=== PATIENT | female | born 1960 | race African-American/Black ===

== ENCOUNTER 2018-04-09 14:52 | Observation (INO) | payer OTHER ==
[~2018-04-09] VITALS: Ht 165.1 cm; Wt 85.8 kg
[~2018-04-09 14:52] MED LIST: ACET-1757 PO; ASPI-496 PO; ASPI81TA45 PO; ATOR40TA PO; FAMO20TA7 PO; LISI-167 PO; LOSA25TA6 PO; METF500T17 PO; [UNRECOGNIZED DRUG - REMARK] PO; albuterol INH; victoza SQ
[2018-04-09] MEDS ORDERED: ASPIRIN 81 MG TABLET CHEW PO ONE (15:00)
[2018-04-09] MEDS ORDERED: ASPIRIN 81 MG TABLET CHEW ONE (15:07)
[2018-04-09] MEDS ORDERED: NITROGLYCERIN SINGLE TAB 0.4 MG SL PRN (15:30)
[2018-04-09] MEDS ORDERED: ONDANSETRON 2MG/ML, 2ML IVPush ONE (15:30)
[2018-04-09] MEDS ORDERED: NITROGLYCERIN SINGLE TAB 0.4 MG SL ONE (15:36)
[2018-04-09 15:54] LABS: BASOPHILS # (AUTO) 0.05 x10^3/uL (0-0.1); BASOPHILS % (AUTO) 0 % (0-1); EOSINOPHILS # (AUTO) 0.37 x10^3/uL (0-0.4); EOSINOPHILS % (AUTO) 3 % (1-7); LYMPHOCYTES # (AUTO) 4.34 x10^3/uL (1-3.4); LYMPHOCYTES % (AUTO) 40 % (22-44); MD NO; MEAN CORPUSCULAR HEMOGLOBIN 27.1 pg (27.0-34.8); MEAN CORPUSCULAR VOLUME 81.9 fL (80-100); MEAN PLATELET VOLUME 7.5 fL (7.4-10.4); MONOCYTES # (AUTO) 0.77 x10^3/uL (0.2-0.8); MONOCYTES % (AUTO) 7 % (2-9); NEUTROPHILS # (AUTO) 5.44 x10^3/uL (1.8-6.8); NEUTROPHILS % (AUTO) 50 % (42-75); PLATELET COUNT 435 x10^3/uL (130-400); RED BLOOD COUNT 5.22 x10^6/uL (3.82-5.3); RED CELL DISTRIBUTION WIDTH 15.8 % (9.6-15.2)
[2018-04-09 16:09] LABS: ANION GAP 6 mmol/L (5-15); CHLORIDE 105 mmol/L (98-107); CREATININE 0.99 mg/dL (0.55-1.02)
[2018-04-09 16:12] LABS: TROPONIN I < 0.015 ng/mL (0.000-0.045)
[2018-04-09] MEDS ORDERED: NITROGLYCERIN 0.4 MG/SPRAY SL PRN (17:30)
[2018-04-09] MEDS: INSULIN LISPRO 100 UNITS/ML, PEN SQ-INSULIN SCH ×2 (17:30→21:35)
[2018-04-09] MEDS ORDERED: MORPHINE SULFATE 4 MG/ML, 1ML IVPush PRN (17:30)
[2018-04-09] MEDS ORDERED: NITROGLYCERIN 0.4 MG BOTTLE (25 TABS) SL PRN (17:30)
[2018-04-09] MEDS ORDERED: ACETAMINOPHEN 325 MG TABLET PO PRN (17:30)
[2018-04-09] MEDS ORDERED: ONDANSETRON ODT 4 MG PO PRN (17:30)
[2018-04-09 17:46] LABS: HEMOGLOBIN A1C 8.3 % (4.2-6.3)
[2018-04-09 18:38] VITALS: BP 137/82
[2018-04-09 19:41] VITALS: BP 119/78
[2018-04-09 19:42] VITALS: BP 142/84
[2018-04-09 19:43] VITALS: BP 142/86
[2018-04-09 21:36] LABS: TROPONIN I < 0.015 ng/mL (0.000-0.045)
[2018-04-09] MEDS: IBUPROFEN 200 MG TABLET PO PRN (22:14)
[2018-04-10 00:22] VITALS: BP 111/68
[2018-04-10 00:24] VITALS: BP 125/79
[2018-04-10 00:26] VITALS: BP 137/83
[2018-04-10 03:31] LABS: BASOPHILS # (AUTO) 0.05 x10^3/uL (0-0.1); BASOPHILS % (AUTO) 1 % (0-1); EOSINOPHILS # (AUTO) 0.36 x10^3/uL (0-0.4); EOSINOPHILS % (AUTO) 4 % (1-7); LYMPHOCYTES # (AUTO) 3.88 x10^3/uL (1-3.4); LYMPHOCYTES % (AUTO) 42 % (22-44); MD NO; MEAN CORPUSCULAR HEMOGLOBIN 27.1 pg (27.0-34.8); MEAN CORPUSCULAR HGB CONC 33.5 g/dL (32.4-35.8); MEAN PLATELET VOLUME 7.7 fL (7.4-10.4); MONOCYTES # (AUTO) 0.78 x10^3/uL (0.2-0.8); MONOCYTES % (AUTO) 8 % (2-9); NEUTROPHILS # (AUTO) 4.16 x10^3/uL (1.8-6.8); NEUTROPHILS % (AUTO) 45 % (42-75); PLATELET COUNT 383 x10^3/uL (130-400); RED BLOOD COUNT 4.69 x10^6/uL (3.82-5.3); RED CELL DISTRIBUTION WIDTH 15.2 % (9.6-15.2)
[2018-04-10 03:43] LABS: ALBUMIN 3.3 g/dL (3.4-5.0); ANION GAP 8 mmol/L (5-15); CALCIUM 8.3 mg/dL (8.5-10.1); CHLORIDE 109 mmol/L (98-107)
[2018-04-10 03:49] LABS: ALANINE AMINOTRANSFERASE 66 U/L (12-78); ALKALINE PHOSPHATASE 90 U/L (45-117); BILIRUBIN,TOTAL 0.3 mg/dL (0.2-1.0); CHOL/HDL RATIO 4.6; CHOLESTEROL, TOTAL 148 mg/dL (140-239); HDL CHOL % 22 % (28-40); HDL CHOLESTEROL (DIRECT) 32 mg/dL (40-60); LDL CHOLESTEROL,CALCULATED 78 mg/dL (54-169); LDL/HDL RATIO 2.4 (0.5-3.0); TOTAL PROTEIN 6.7 g/dL (6.4-8.2); TRIGLYCERIDES 190 mg/dL (50-200); TROPONIN I < 0.015 ng/mL (0.000-0.045); VLDL CHOLESTEROL 38 mg/dL (0-25)
[2018-04-10] MEDS: INSULIN LISPRO 100 UNITS/ML, PEN SQ-INSULIN SCH ×3 (07:00→16:45)
[2018-04-10 07:21] VITALS: BP 128/82
[2018-04-10 07:45] VITALS: BP_SYST 132; BP_SYST 140; BP_DIAS 83; BP_DIAS 93
[2018-04-10] MEDS ORDERED: REGADENOSON 0.4 MG/5 ML SYRINGE ONE (08:36)
[2018-04-10] MEDS ORDERED: ASPIRIN 81 MG TABLET EC PO SCH (09:00)
[2018-04-10] MEDS: IBUPROFEN 200 MG TABLET PO PRN (13:28)
== END 2018-04-10 17:10 | disposition home or self-care (01) ==
LOC: ED 16:58 → EDIP 16:59 → INTOOBSV 16:59 → ED 17:14 → 5SO 18:34 → DCLOUNGE 04-10 17:05
PROVIDERS: ADMIT Internal Medicine; ATTEND Family Medicine
DX: R07.9 Chest pain, unspecified (principal); E11.9 Type 2 diabetes mellitus without complications; D47.3 Essential (hemorrhagic) thrombocythemia; E78.5 Hyperlipidemia, unspecified; R42 Dizziness and giddiness; Z79.4 Long term (current) use of insulin
CPT/HCPCS: 36415; 71045; 78452; 80048; 80053; 80061; 82040; 82962; 83036; 84443; 84484; 85025; 93005; 93017; 96372; 99285; A9502; C9898; G0378; J1815; J2785

== ENCOUNTER 2018-08-18 14:27 | Emergency (ER) | payer OTHER ==
[~2018-08-18] VITALS: Ht 165.1 cm; Wt 84.5 kg
[~2018-08-18 14:27] MED LIST changes: +LOSA25TA25 PO; -LOSA25TA6 PO
[2018-08-18] MEDS ORDERED: EMPA10TA PO (15:04)
[2018-08-18 15:45] LABS: BASOPHILS # (AUTO) 0.06 x10^3/uL (0-0.1); BASOPHILS % (AUTO) 1 % (0-1); EOSINOPHILS # (AUTO) 0.29 x10^3/uL (0-0.4); EOSINOPHILS % (AUTO) 3 % (1-7); LYMPHOCYTES # (AUTO) 3.96 x10^3/uL (1-3.4); LYMPHOCYTES % (AUTO) 38 % (22-44); MD NO; MEAN CORPUSCULAR HEMOGLOBIN 27.5 pg (27.0-34.8); MEAN CORPUSCULAR HGB CONC 33.9 g/dL (32.4-35.8); MEAN CORPUSCULAR VOLUME 81.2 fL (80-100); MEAN PLATELET VOLUME 7.7 fL (7.4-10.4); MONOCYTES # (AUTO) 0.86 x10^3/uL (0.2-0.8); MONOCYTES % (AUTO) 8 % (2-9); NEUTROPHILS % (AUTO) 51 % (42-75); PLATELET COUNT 419 x10^3/uL (130-400); RED BLOOD COUNT 5.38 x10^6/uL (3.82-5.3); RED CELL DISTRIBUTION WIDTH 15.1 % (9.6-15.2)
[2018-08-18 15:54] LABS: ALANINE AMINOTRANSFERASE 80 U/L (12-78); ALBUMIN 4.3 g/dL (3.4-5.0); ANION GAP 7 mmol/L (5-15); CALCIUM 9.2 mg/dL (8.5-10.1); CHLORIDE 108 mmol/L (98-107); CREATININE 0.94 mg/dL (0.55-1.02)
[2018-08-18 15:59] LABS: ALKALINE PHOSPHATASE 90 U/L (45-117); BILIRUBIN,TOTAL 0.7 mg/dL (0.2-1.0); TOTAL PROTEIN 7.6 g/dL (6.4-8.2); TROPONIN I < 0.015 ng/mL (0.000-0.045)
--- NOTE | 2018-08-18 16:05 | NUR ---
pt upright on gurney awake & comfortable, responds approp to staff, NAD, comfort measures provided, call light within reach.
--- NOTE | 2018-08-18 16:30 | NUR ---
pt ambulated indep to BR- ERP aware.
--- NOTE | 2018-08-18 17:01 | NUR ---
pt remains upright on gurney awake & comfortable, responds approp to staff, NAD, comfort measures provided, call light withiin reach.
[2018-08-18] MEDS ORDERED: KETOROLAC 30 MG/1 ML ONE (17:46)
[2018-08-18] MEDS ORDERED: ACETAMINOPHEN 500 MG TABLET ONE (17:46)
[2018-08-18 17:51] VITALS: BP 134/88
[2018-08-18] MEDS ORDERED: KETOROLAC 30 MG/1 ML IM ONE (18:00)
[2018-08-18] MEDS ORDERED: ACETAMINOPHEN 500 MG TABLET PO ONE (18:00)
--- NOTE | 2018-08-18 18:40 | NUR ---
Patient given discharge instructions and they have confirmed that they understand the instructions. Patient ambulatory with steady gait.
--- NOTE | 2018-08-18 19:40 | NUR ---
GIVEN DC INSTRUCTION PT UNDERSTOOD PT UP AMBULATED TO CHECK OUT
== END 2018-08-18 19:43 | disposition home or self-care (01) ==
LOC: ED 19:14
DX: R51 Headache (principal); I10 Essential (primary) hypertension; E11.9 Type 2 diabetes mellitus without complications; R20.8 Other disturbances of skin sensation; Z90.49 Acquired absence of other specified parts of digestive tract; Z90.710 Acquired absence of both cervix and uterus
CPT/HCPCS: 36415; 70450; 80053; 84484; 85025; 93005; 96372; 99284; J1885

== ENCOUNTER 2018-10-27 15:53 | Emergency (ER) | payer OTHER ==
[~2018-10-27] VITALS: Ht 165.1 cm; Wt 84.2 kg
[~2018-10-27 15:53] MED LIST changes: +EMPA10TA PO
--- NOTE | 2018-10-27 16:15 | NUR ---
PT C/O LIGHTHEADEDNESS SINCE THIS MORNING, NAUSEA, DIARRHEA. CHEST PRESSURE STARTED RIGHT BEFORE COMING INTO ER
[2018-10-27] MEDS ORDERED: LIRAGLUTIDE (16:21)
[2018-10-27] MEDS ORDERED: ASPIRIN 81 MG TABLET CHEW PO ONE (16:30)
[2018-10-27] MEDS ORDERED: ACETAMINOPHEN 500 MG TABLET PO ONE (16:30)
[2018-10-27] MEDS ORDERED: NITROGLYCERIN SINGLE TAB 0.4 MG SL ONE ×2 (16:30→16:39)
[2018-10-27] MEDS ORDERED: ACETAMINOPHEN 500 MG TABLET ONE (16:39)
[2018-10-27] MEDS ORDERED: ASPIRIN 81 MG TABLET CHEW ONE (16:39)
--- NOTE | 2018-10-27 16:46 | NUR ---
Pt reports she is still having mild CP. Medicated as ordered. Will cont to monitor
[2018-10-27 16:58] LABS: BASOPHILS # (AUTO) 0.06 x10^3/uL (0-0.1); BASOPHILS % (AUTO) 1 % (0-1); EOSINOPHILS # (AUTO) 0.36 x10^3/uL (0-0.4); EOSINOPHILS % (AUTO) 3 % (1-7); LYMPHOCYTES # (AUTO) 4.06 x10^3/uL (1-3.4); LYMPHOCYTES % (AUTO) 37 % (22-44); MD NO; MEAN CORPUSCULAR HEMOGLOBIN 27.2 pg (27.0-34.8); MEAN CORPUSCULAR VOLUME 82.5 fL (80-100); MEAN PLATELET VOLUME 7.8 fL (7.4-10.4); MONOCYTES # (AUTO) 0.78 x10^3/uL (0.2-0.8); MONOCYTES % (AUTO) 7 % (2-9); NEUTROPHILS # (AUTO) 5.65 x10^3/uL (1.8-6.8); NEUTROPHILS % (AUTO) 52 % (42-75); PLATELET COUNT 395 x10^3/uL (130-400); RED BLOOD COUNT 5.12 x10^6/uL (3.82-5.3); RED CELL DISTRIBUTION WIDTH 15.1 % (9.6-15.2)
[2018-10-27 17:04] LABS: ALANINE AMINOTRANSFERASE 76 U/L (12-78); ALBUMIN 3.6 g/dL (3.4-5.0); ANION GAP 9 mmol/L (5-15); CALCIUM 8.7 mg/dL (8.5-10.1); CHLORIDE 105 mmol/L (98-107)
[2018-10-27 17:09] LABS: ALKALINE PHOSPHATASE 92 U/L (45-117); BILIRUBIN,TOTAL 0.3 mg/dL (0.2-1.0); CREATININE 0.83 mg/dL (0.55-1.02); TROPONIN I < 0.015 ng/mL (0.000-0.045)
--- NOTE | 2018-10-27 17:40 | NUR ---
Rounded on pt, no needs at this time. Pt reports headache post Nitro admin, Tylenol was given. Will cont to monitor, NSR on monitor.
--- NOTE | 2018-10-27 18:09 | NUR ---
Pt reports relief in CP with Nitro
--- NOTE | 2018-10-27 18:16 | NUR ---
Pt ok to eat per MD. Food given
--- NOTE | 2018-10-27 19:02 | NUR ---
Report to Enriqueta SANTOYO
--- NOTE | 2018-10-27 19:30 | NUR ---
pt resting on gurney, stated pain is alot better, denies need for medication. monitors in place, call light within reach. awaiting repeat troponin at 1930
[2018-10-27 20:04] LABS: TROPONIN I < 0.015 ng/mL (0.000-0.045)
[2018-10-27 20:16] VITALS: BP 135/78
--- NOTE | 2018-10-27 20:17 | NUR ---
pt resting on gurfloyd, stated she just returned from rr, monitors reapplied, siderails up x2, call light within reach. chart up for recheck
== END 2018-10-27 21:03 | disposition home or self-care (01) ==
LOC: ED 17:47
DX: R07.89 Other chest pain (principal); R42 Dizziness and giddiness; R11.0 Nausea; R19.7 Diarrhea, unspecified; E78.00 Pure hypercholesterolemia, unspecified; I10 Essential (primary) hypertension; E11.9 Type 2 diabetes mellitus without complications; Z88.5 Allergy status to narcotic agent; Z88.6 Allergy status to analgesic agent
CPT/HCPCS: 36415; 71045; 80053; 83880; 84484; 85025; 93005; 99284

== ENCOUNTER 2019-07-12 08:34 | Outpatient (CLI) | payer OTHER ==
[~2019-07-12 08:34] MED LIST changes: -ACET-1757 PO; +ACET-2065 PO; +LIRAGLUTIDE
== END 2019-07-12 23:59 | disposition home or self-care (01) ==
LOC: CARD 08:34
PROVIDERS: ATTEND Registered Nurse
DX: G40.89 Other seizures (principal)
CPT/HCPCS: 95819

== ENCOUNTER 2019-10-07 03:55 | Emergency (ER) | payer OTHER ==
[~2019-10-07] VITALS: Ht 165.1 cm; Wt 83.4 kg
--- NOTE | 2019-10-07 04:25 | NUR ---
PT TO ED WITH C/O BODY SHAKES. PT REPORTS AROUND 0330 THIS MORNING SHE HAD A 2 MINUTE EPISODE OF FULL BODY SHAKES. REPORTS BEING ALERT AND ORIENTED DURING EVENT. REPORTS THIS HAPPENED TWO MORE TIMES. REPORTS AROUND MARCH HAVING SIMILAR EPISODES AND HER PCP REFERRED HER TO NEUROLOGY. REPORTS THAT SHE SEES [facility] SHE HAD AN EEG AND MRI IN JULY. REPORTS BOTH OF THESE ARE NEGATIVE AND SHE STILL SEES NEUROLOGY. REPORTS THAT YESTERDAY MORNING SHE CALLED INTO WORK BECAUSE SHE WOKE UP FROM SLEEP "FEELING HUNGOVER". DENIES ANY DRUG/ETOH USE. HX OF HTN AND DM. COMPLIANT WITH MEDICATIONS. DENIES RECENT ILLNESS, FEVER, OR VOMITING.
[2019-10-07] MEDS ORDERED: LISI2.5T PO (04:29)
[2019-10-07 05:50] LABS: BASOPHILS # (AUTO) 0.08 x10^3/uL (0-0.1); BASOPHILS % (AUTO) 1 % (0-1); EOSINOPHILS # (AUTO) 0.31 x10^3/uL (0-0.4); EOSINOPHILS % (AUTO) 3 % (1-7); LYMPHOCYTES # (AUTO) 4.19 x10^3/uL (1-3.4); LYMPHOCYTES % (AUTO) 36 % (22-44); MD NO; MEAN CORPUSCULAR HEMOGLOBIN 27.7 pg (27.0-34.8); MEAN CORPUSCULAR HGB CONC 33.6 g/dL (32.4-35.8); MEAN CORPUSCULAR VOLUME 82.3 fL (80-100); MEAN PLATELET VOLUME 7.9 fL (7.4-10.4); MONOCYTES % (AUTO) 9 % (2-9); NEUTROPHILS % (AUTO) 52 % (42-75); PLATELET COUNT 357 x10^3/uL (130-400); RED CELL DISTRIBUTION WIDTH 15.6 % (9.6-15.2)
[2019-10-07 06:04] LABS: ALBUMIN 3.5 g/dL (3.4-5.0); ANION GAP 10 mmol/L (5-15); CALCIUM 8.7 mg/dL (8.5-10.1); CHLORIDE 105 mmol/L (98-107)
[2019-10-07 06:05] LABS: CREATININE 1.01 mg/dL (0.55-1.02)
--- NOTE | 2019-10-07 06:21 | NUR ---
PT RESTING AT THIS TIME AND DENIES CURRENT NEEDS. NO SEIZURE LIKE ACTIVITY WHILE IN ED.
[2019-10-07 06:46] VITALS: BP 138/67
== END 2019-10-07 06:48 | disposition home or self-care (01) ==
LOC: ED 05:11
DX: R25.1 Tremor, unspecified (principal); R94.31 Abnormal electrocardiogram [ECG] [EKG]; E78.00 Pure hypercholesterolemia, unspecified; E78.5 Hyperlipidemia, unspecified; I10 Essential (primary) hypertension; Z90.49 Acquired absence of other specified parts of digestive tract; Z90.710 Acquired absence of both cervix and uterus
CPT/HCPCS: 36415; 80048; 82040; 85025; 93005; 99284

== ENCOUNTER → 2020-07-05 | Outpatient (CLI) | payer OTHER ==
[~2020-07-05] MED LIST changes: +GADOTERATE 10 MMOL/20ML SYR ONE; +LISI2.5T PO
== END | disposition home or self-care (01) ==
LOC: RAD 15:21
PROVIDERS: ATTEND Registered Nurse
DX: R90.82 White matter disease, unspecified (principal); G40.211 Localization-related (focal) (partial) symptomatic epilepsy and epileptic syndromes with complex partial seizures, intractable, with status epilepticus; C94.6 Myelodysplastic disease, not elsewhere classified
CPT/HCPCS: 70553; A9575

== ENCOUNTER → 2020-07-19 | Outpatient (CLI) | payer OTHER ==
[~2020-07-19] MED LIST changes: -GADOTERATE 10 MMOL/20ML SYR ONE
== END | disposition home or self-care (01) ==
LOC: CARD 12:35
PROVIDERS: ATTEND Registered Nurse
DX: G40.211 Localization-related (focal) (partial) symptomatic epilepsy and epileptic syndromes with complex partial seizures, intractable, with status epilepticus (principal)
CPT/HCPCS: 95819

== ENCOUNTER → 2020-08-16 | Outpatient (CLI) | payer OTHER | END | disposition home or self-care (01) | LOC: CARD 06:39 → EDSTATUS 07:00 | PROVIDERS: ATTEND Internal Medicine Cardiovascular Disease | DX: I08.8 Other rheumatic multiple valve diseases (principal); I10 Essential (primary) hypertension; R06.02 Shortness of breath | CPT/HCPCS: 93306; 93356 ==

== ENCOUNTER 2021-02-08 05:30 | Emergency (ER) | payer OTHER ==
[~2021-02-08] VITALS: Ht 165.1 cm; Wt 81.5 kg
[2021-02-08 07:51] VITALS: BP 136/80
== END 2021-02-08 09:11 | disposition home or self-care (01) ==
LOC: ED 07:34
DX: R07.89 Other chest pain (principal); R11.2 Nausea with vomiting, unspecified; R94.31 Abnormal electrocardiogram [ECG] [EKG]; I10 Essential (primary) hypertension; E11.9 Type 2 diabetes mellitus without complications; E78.5 Hyperlipidemia, unspecified; E78.00 Pure hypercholesterolemia, unspecified; Z94.9 Transplanted organ and tissue status, unspecified; Z90.710 Acquired absence of both cervix and uterus
CPT/HCPCS: 36415; 71045; 80053; 83605; 83690; 84484; 85025; 93005; 96360; 96361; 99285; J7030